=== PATIENT | male | born 1955 | race African-American/Black ===

== ENCOUNTER 2017-06-07 20:52 | Emergency (ER) | payer OTHER ==
[2017-06-07] MEDS ORDERED: IBUP-1022 PO (21:21)
[2017-06-07] MEDS ORDERED: TEGR200T PO (21:21)
[2017-06-07] MEDS ORDERED: SODIUM CHLORIDE 0.9% 1000 ML IV ONE (22:00)
--- NOTE | 2017-06-07 22:20 | REPUSA ---
CT of the head Clinical history: syncope. Protocol: Multiple axial CT images obtained with 5 mm slice thickness were obtained through the head without administration of contrast. Findings: The ventricles and sulci are symmetric bilaterally. There is chronic encephalomalacia in th e right occipital lobe. There are periventricular areas of low attenuation throughout the deep white matter. There is no evidence of acute hemorrhage or infarct. There is no midline shift, mass effect, or extra-axial fluid collection. The osseous structures are unremarkable. The visualized paranasal si nuses and mastoid air cells are clear. Impression: No acute hemorrhage or infarct. Findings are consistent with chronic small vessel ischemi c disease. Chronic encephalomalacia the right occipital lobe.
[2017-06-07 23:45] LABS: BASO % 0.4 % (0.0-1.0); EOS # 0.3 10^3/uL (0.0-0.50); EOS % 5.2 % (0.0-3.0); IMMATURE GRANULOCYTE % 0.4 % (0-0); MEAN CORPUSCULAR HEMOGLOBIN 27.1 pg (27.0-33.0); MEAN CORPUSCULAR HGB CONC 32.7 g/dl (32.0-36.5); MEAN CORPUSCULAR VOLUME 82.8 fl (80.0-96.0); MONO # 0.4 10^3/uL (0.0-0.8); MONO % 7.9 % (0.0-5.0); NEUTROPHILS # 3.5 10^3/uL (1.8-7.7); NEUTROPHILS % 67.1 % (36.0-66.0); PLATELET COUNT, AUTOMATED 294 10^3/uL (150-450); RED CELL DISTRIBUTION WIDTH 14.4 % (11.5-14.5); WHITE BLOOD COUNT 5.2 10^3/uL (4.0-10.0)
[2017-06-07] MEDS ORDERED: IBUPROFEN 600 MG TAB PO ONE (23:45)
[2017-06-08 00:09] LABS: ANION GAP 7 MEQ/L (8-16); BLOOD UREA NITROGEN 13 MG/DL (7-18); CALCIUM LEVEL 8.2 MG/DL (8.8-10.2); CARBON DIOXIDE LEVEL 27 MEQ/L (21-32); CHLORIDE LEVEL 106 MEQ/L (98-107); CREATININE FOR GFR 1.14 MG/DL (0.70-1.30); FREE T4 1.04 NG/DL (0.76-1.46); GLOMERULAR FILTRATION RATE > 60.0 (>49); GLUCOSE, FASTING 97 MG/DL (80-110); POTASSIUM SERUM 4.1 MEQ/L (3.5-5.1); SODIUM LEVEL 140 MEQ/L (136-145)
[2017-06-08 00:10] LABS: METHADONE URINE NEGATIVE (NEGATIVE)
[2017-06-08] MEDS ORDERED: carBAMazepine 200 MG TAB PO ONE (00:15)
[2017-06-08] MEDS ORDERED: CARB20TA PO (00:29)
[2017-06-08 01:05] VITALS: BP 144/83
--- NOTE | 2017-06-09 08:30 | ECGEPIP ---
Stationary ECG Study [facility] - ED Test Date: 2017-06-07 Pat Name: ALYSON AUGUSTINE Department: Room: - Gender: M [employer] Electric[employer]: : 1955 Requested By: JOSE GUADALUPE TORO Order Number: [id number] Reading MD: Aby Prasad Measurements Intervals [place] Rate: 79 P: 29 MO: 140 QRS: 36 QRSD: 93 T: 44 QT: 360 QTc: 414 Interpretive Statements SINUS RHYTHM WITH OCCASIONAL SUPRAVENTRICULAR PREMATURE COMPLEXES ST ELEVATION REQUIRES CLINICAL CORRELATION NO PRIOR FOR COMPARISON Electronically Signed On 06-09-2017 8:30:03 EST by Aby Prasad
== END 2017-06-08 01:10 | disposition home or self-care (01) ==
LOC: M ED 20:52 → EDBD 20:52 → M ED 06-08 01:10
DX: G40.909 Epilepsy, unspecified, not intractable, without status epilepticus (principal); Z91.19 Patient's noncompliance with other medical treatment and regimen; Z79.899 Other long term (current) drug therapy
CPT/HCPCS: 36415; 70450; 80048; 80156; 80307; 81001; 82550; 82553; 83605; 83735; 83930; 84439; 84443; 85025; 93005; 94760; 99284; G0480